=== PATIENT | male | born 1960 | race Caucasian/White ===

== ENCOUNTER 2016-06-30 07:29 | Day surgery (SDC) | payer BC ==
[2016-06-27 12:13] VITALS: BMI 29.2
[2016-06-30] MEDS ORDERED: PROPOFOL 20 ML ONE ×3 (08:38)
[2016-06-30] MEDS ORDERED: LIDOCAINE HCL/PF 2% SDV 5ML VIAL ONE (08:38)
[2016-06-30 09:32] VITALS: TEMP 98.1
[2016-06-30 12:03] VITALS: BP 120/76; PULSE 74
--- NOTE | 2016-07-01 11:52 | PATH ---
Surgical Pathology Report Patient Name: ELINA BARBOSA [facility]. Rec. #: [id number] /Age/Gender: 1960 (Age: 55) / M Account: [id number] Location: [facility]-ENDOSCOPY Taken: 06/30/2016 Received: 06/30/2016 Reported: 07/01/2016 Physicians: Danyel rAthur M.D. Specimen(s) Received A: BX ANTRAL NODULE B: BX DISTAL ESOPHAGUS Clinical History Antral nodule and ulcers GERD, antral nodule Final Diagnosis A. STOMACH, ANTRAL NODULE, BIOPSY: REACTIVE GASTROPATHY WITH MILD CHRONIC GASTRITIS. IMMUNOSTAIN FOR H. PYLORI IS NEGATIVE. B. DISTAL ESOPHAGUS, BIOPSY: SQUAMOUS EPITHELIUM WITH PAPILLOMATOSIS SUGGESTIVE OF REFLUX ESOPHAGITIS, AND GASTRIC MUCOSA WITH MILD CHRONIC INFLAMMATION. NO INTESTINAL METAPLASIA IDENTIFIED (NO PATEL'S IDENTIFIED). Electronically Signed Gavin Smith M.D. Gross Description A. Received in formalin, labeled "biopsy antral nodule" are 4 reyes, irregular portions of soft tissue ranging from 0.2-0.3 cm. in greatest dimension. The specimens are submitted in toto in one cassette. B. Received in formalin, labeled "biopsy distal esophagus" are 3 reyes, irregular portions of soft tissue ranging from 0.3-0.6 cm. in greatest dimension. The specimens are submitted in toto in one cassette. 06/30/201606/30/2016
== END 2016-06-30 10:25 | disposition home or self-care (01) ==
LOC: JASU-ENDO 07:29
PROVIDERS: ATTEND Internal Medicine Gastroenterology
PROC: 0DB38ZX Excision of Lower Esophagus, Via Natural or Artificial Opening Endoscopic, Diagnostic (ICD-10-PCS; 2016-06-30)
PROC: 0DB78ZX Excision of Stomach, Pylorus, Via Natural or Artificial Opening Endoscopic, Diagnostic (ICD-10-PCS; principal; 2016-06-30 09:00)
DX: K21.0 Gastro-esophageal reflux disease with esophagitis (principal); K44.9 Diaphragmatic hernia without obstruction or gangrene; K22.2 Esophageal obstruction; K31.7 Polyp of stomach and duodenum
CPT/HCPCS: 88305-TC; 88342-TC

== ENCOUNTER 2017-11-02 07:49 | Day surgery (SDC) | payer BC ==
[2017-10-30 16:16] VITALS: BMI 29.4
[2017-11-02 09:13] VITALS: TEMP 97.8
[2017-11-02 10:06] VITALS: BP 105/61; PULSE 76
--- NOTE | 2017-11-03 10:46 | PATH ---
Surgical Pathology Report Patient Name: ELINA BARBOSA [facility]. Rec. #: [id number] /Age/Gender: 1960 (Age: 56) / M Account: [id number] Location: [facility]-ENDOSCOPY Taken: 11/02/2017 Received: 11/02/2017 Reported: 11/03/2017 Physicians: Danyel Arthur M.D. Specimen(s) Received A: RECTAL POLYP B: BX DISTAL TRANSVERSE COLON POLYP C: BX PROXIMAL TRANSVERSE COLON POLYP Clinical History History of colon polyp Postoperative diagnosis: Polyps, diverticulosis Final Diagnosis A. RECTUM, POLYP, POLYPECTOMY: POLYPOID COLONIC MUCOSA WITH SUPERFICIAL HYPERPLASTIC FEATURES. B. DISTAL TRANSVERSE COLON, POLYP, POLYPECTOMY: TUBULAR ADENOMA. C. PROXIMAL TRANSVERSE COLON, POLYP, POLYPECTOMY: HYPERPLASTIC POLYP. Electronically Signed Rose Greer M.D. Gross Description A. Received in formalin, labeled "biopsy rectal polyp" is a reyes, irregular portion of soft tissue measuring 0.2 cm. in greatest dimension. The specimen is submitted in toto in one cassette. B. Received in formalin, labeled "polyp distal transverse colon" is a reyes, irregular portion of soft tissue measuring 0.3 cm. in greatest dimension. The specimen is submitted in toto in one cassette. C. Received in formalin, labeled "proximal transverse colon polyp" are 4 reyes, irregular portions of soft tissue averaging 0.3 cm. in greatest dimension. The specimens are submitted in toto in one cassette. /11/02/2017 saudi11/02/2017
== END 2017-11-02 10:00 | disposition home or self-care (01) ==
LOC: JASU-ENDO 07:49
PROVIDERS: ATTEND Internal Medicine Gastroenterology
PROC: 0DBP8ZX Excision of Rectum, Via Natural or Artificial Opening Endoscopic, Diagnostic (ICD-10-PCS; 2017-11-02)
PROC: 0DBL8ZX Excision of Transverse Colon, Via Natural or Artificial Opening Endoscopic, Diagnostic (ICD-10-PCS; principal; 2017-11-02 09:00)
DX: Z12.11 Encounter for screening for malignant neoplasm of colon (principal); Z86.010 Personal history of colon polyps; K62.1 Rectal polyp; D12.3 Benign neoplasm of transverse colon; K64.8 Other hemorrhoids
CPT/HCPCS: 88305-TC

== ENCOUNTER 2023-05-20 06:18 | Day surgery (SDC) | payer BC ==
[2023-05-13 09:43] VITALS: BMI 25.8
[2023-05-20 08:53] VITALS: TEMP 98
[2023-05-20 09:15] VITALS: PULSE 72
[2023-05-20 09:35] VITALS: BP 105/53; RESP 14
== END 2023-05-20 09:39 | disposition home or self-care (01) ==
LOC: JASU-ENDO 06:18
PROVIDERS: ATTEND Internal Medicine Gastroenterology
PROC: 0DBL8ZX Excision of Transverse Colon, Via Natural or Artificial Opening Endoscopic, Diagnostic (ICD-10-PCS; 2023-05-20)
PROC: 0DBN8ZX Excision of Sigmoid Colon, Via Natural or Artificial Opening Endoscopic, Diagnostic (ICD-10-PCS; principal; 2023-05-20 09:00)
DX: Z12.11 Encounter for screening for malignant neoplasm of colon (principal); D12.5 Benign neoplasm of sigmoid colon; D12.3 Benign neoplasm of transverse colon; K64.8 Other hemorrhoids; K57.30 Diverticulosis of large intestine without perforation or abscess without bleeding; Z86.010 Personal history of colon polyps
CPT/HCPCS: 88305-TC